=== PATIENT | female | born 1955 | race Caucasian/White ===

== ENCOUNTER → 2018-12-17 | Outpatient (REF) | payer OTHER ==
[2018-12-18 15:39] LABS: ANTI DOUBLE STRAND-DNA AB 1 IU/mL (0-9); ANTINUCLEAR ANTIBODIES DIRECT Positive (Negative); Lyme Disease IgG/IgM Antibodie <0.91 ISR (0.00-0.90); Lyme Disease IgM Ab Quantitati <0.80 index (0.00-0.79); RNP ANTIBODIES 2.1 AI (0.0-0.9); SJOGREN'S ANTI SS-A <0.2 AI (0.0-0.9); SJOGREN'S ANTI SS-B <0.2 AI (0.0-0.9); SMITH ANTIBODIES <0.2 AI (0.0-0.9)
== END ==
LOC: M LAB REF 13:29
PROVIDERS: ATTEND Internal Medicine
DX: M25.50 Pain in unspecified joint (principal)

== ENCOUNTER → 2019-10-10 | Outpatient (CLI) | payer OTHER | LOC: M PT 09:01 | PROVIDERS: ATTEND Orthopaedic Surgery | DX: Z01.818 Encounter for other preprocedural examination (principal); M16.12 Unilateral primary osteoarthritis, left hip ==

== ENCOUNTER → 2019-11-08 | Outpatient (CLI) | payer OTHER ==
[~2019-11-08] MED LIST: ACET-683 PO; CLAR10CA3 PO; CYMB1CAP5 PO; LOSA100T8 PO; MULTTAB12 PO; NAPR-885 PO; NORV5TAB PO; XALA0.007 OU
[2019-11-08 09:04] LABS: HEMATOCRIT 41.1 % (36.0-47.0); HEMOGLOBIN 13.2 g/dl (12.0-15.5); MEAN CORPUSCULAR HEMOGLOBIN 29.6 pg (27.0-33.0); MEAN CORPUSCULAR HGB CONC 32.1 g/dl (32.0-36.5); MEAN CORPUSCULAR VOLUME 92.2 fl (80.0-96.0); PLATELET COUNT, AUTOMATED 332 10^3/uL (150-450); RED BLOOD COUNT 4.46 10^6/uL (4.00-5.40); WHITE BLOOD COUNT 7.8 10^3/uL (4.0-10.0)
[2019-11-08 09:31] LABS: INR 1.35; PROTHROMBIN TIME 16.4 SECONDS (11.8-14.0)
[2019-11-08 09:35] LABS: ALBUMIN 3.9 GM/DL (3.2-5.2); ALT/SGPT 26 U/L (12-78); BILIRUBIN,TOTAL 0.4 MG/DL (0.2-1.0); BLOOD UREA NITROGEN 20 MG/DL (7-18); CALCIUM LEVEL 9.5 MG/DL (8.8-10.2); CARBON DIOXIDE LEVEL 26 MEQ/L (21-32); CHLORIDE LEVEL 104 MEQ/L (98-107); GLOMERULAR FILTRATION RATE > 60.0 (>45); GLUCOSE, FASTING 99 MG/DL (70-100); POTASSIUM SERUM 4.1 MEQ/L (3.5-5.1); SODIUM LEVEL 138 MEQ/L (136-145); TOTAL PROTEIN 7.7 GM/DL (6.4-8.2)
[2019-11-08 09:46] LABS: ERYTHROCYTE SEDIMENTATION RATE 43 mm/hr (0-30)
--- NOTE | 2019-11-10 07:32 | ECGEPIP ---
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
--- NOTE | 2019-11-10 12:46 | REP ---
Clinical: Preoperative assessment. History of hypertension . Comparison: None . Technique: PA and lateral. Findings: The mediastinum and cardiac silhouette are normal. The lung delvalle are clear and without acute consolidation, effusion, or pneumothorax. The skeletal structures are intact and normal. Impression: 1. No acute cardiopulmonary process. Electronically Signed by Carlos Chisholm MD 11/08/2019 09:11 A
== END ==
LOC: M RAD 08:19
PROVIDERS: ATTEND Orthopaedic Surgery
DX: Z01.810 Encounter for preprocedural cardiovascular examination (principal); M17.12 Unilateral primary osteoarthritis, left knee

== ENCOUNTER 2019-11-23 05:50 | Inpatient (IN) | payer OTHER ==
--- NOTE | 2019-11-18 18:26 | HPE ---
DATE OF SCHEDULED ADMISSION: 11/23/2019 CHIEF COMPLAINT: Left hip pain. HISTORY OF PRESENT ILLNESS: Eileen is a pleasant 64-year-old female with progressively worsening left hip pain and stiffness. She has failed to improve with conservative treatment. She has elected for surgery for her continued symptoms. She has pain with weightbearing activities and her activities of daily living. X-rays of her hip are notable for advanced osteoarthritis of the left hip joint. She has consented for a left total hip arthroplasty by Dr. Mike Orellana. Medical optimization was performed by Dr. Dyson. ALLERGIES: SULFA, SIMBRINZA and LATEX. CURRENT MEDICATIONS: - losartan/HCTZ 100/12.5 one in the morning - duloxetine 30 mg one tablet twice a day - amlodipine 5 mg one tablet in the evening - naproxen 500 as needed - latanoprost ophthalmic solution 2.5 mL, 0.005% one drop in each eye at bedtime. She also takes: - Once a day multivitamin - Claritin 10 mg - Tylenol Arthritis. PAST MEDICAL HISTORY: Includes hypertension. PAST SURGICAL HISTORY: Includes cataract removal both eyes SOCIAL HISTORY: She is retired. Does not smoke. Rarely drinks alcohol. FAMILY HISTORY: Noncontributory. REVIEW OF SYSTEMS: This patient denies chest pain, heart palpitations, cough, wheezing, difficulty breathing and shortness of breath. She denies abdominal pain, nausea, vomiting, diarrhea or constipation. She denies recent upper respiratory infection and urinary tract infection symptoms. She does complain of persistent pain in the left hip and pain with weightbearing activities in her left hip. PHYSICAL EXAMINATION: General: She is a well-nourished, well-developed, in no acute distress, alert female patient. She ambulates with a moderate limp, favoring the left lower extremity, and she is using a single-leg cane. Vital signs: She is 67 inches tall, weighs 238.6 pounds with a temperature of 99.2, blood pressure 136/80, pulse 68, and respirations of 17. Neck was supple without adenopathy or jugular venous distension. Lungs were clear to auscultation without rales or wheeze. Heart: Regular rate and rhythm. Abdomen: Bowel sounds were present. Extremities: Examination of the hip revealed intact skin. The patient had decreased range of motion due to pain and stiffness. The limb is neurovascularly intact. LABORATORY DATA: EKG showed normal sinus rhythm at 84 beats per minute. Chest x-ray showed no acute cardiopulmonary disease processes. Pro-time 16.4, INR 1.35, glucose 99, BUN 20, creatinine 0.90, sodium 138, potassium 4.1. CBC was within normal limits with a sedimentation rate of 43. IMPRESSION: Symptomatic osteoarthritis of the left hip joint. PLAN: Consented for a left total hip arthroplasty by Dr. Mike Orellana.
[~2019-11-23] VITALS: Ht 167.6 cm; Wt 107.5 kg
[2019-11-23] VITALS (7 sets, daily range): BP systolic 111–151; BP diastolic 59–93
[2019-11-23] MEDS ORDERED: LIDOCAINE 1% MDV 20ML VIAL SQ PRN (06:00)
[2019-11-23] MEDS ORDERED: LR 1,000 ML IV ONE (06:00)
[2019-11-23] MEDS ORDERED: ceFAZolin SOD 2 GM in IV 1 EA IV ONE (06:00)
[2019-11-23] MEDS ORDERED: TRANEXAMIC ACID 100 MG/ML 10ML VIAL As Ordered ONE (06:51)
[2019-11-23] MEDS ORDERED: ceFAZolin 1GM INJ (J0690 PER 500MG) As Ordered ONE (06:52)
[2019-11-23] MEDS ORDERED: BUPIVACAINE LIPOSOME/PF 1.3% 20ML VIAL (13.3MG/ML)(EXPAREL)(C9290 PER1MG) As Ordered ONE (06:52)
[2019-11-23] MEDS ORDERED: EPINEPHrine INJ 1 MG/ML 1ML VIAL As Ordered ONE (06:52)
[2019-11-23] MEDS ORDERED: MIDAZOLAM INJ 2 MG/2 ML VIAL (J2250) As Ordered ONE ×2 (07:32→07:58)
--- NOTE | 2019-11-23 07:57 | IPN ---
DATE: 11/23/2019 The patient seen and examined. She wished to go ahead with a left total hip arthroplasty. She understands the nature of this the risks of bleeding, infection, damage to nerves, vessels, persistent pain, wear loosening, dislocation, leg length inequality, blood clots, medical problems, among others. She understands that her morbid obesity substantially increases the risks of perioperative and postoperative complications. In addition, she has some small sores around her hip area but nothing even remotely close to where the incision would be. There is one or two in the anterior groin area and one more distally on her thigh and she says this is a chronic condition. She is not familiar with what it is. They look to be very benign and not infected and I think it is safe to proceed as the incision will be several inches from any of these.
[2019-11-23] MEDS ORDERED: fentaNYL 100 MCG/2 ML INJECTION (J3010) As Ordered ONE ×2 (08:13→11:57)
[2019-11-23] MEDS ORDERED: ePHEDrine SULFATE 25 MG/5 ML(5MG/ML) SYRINGE As Ordered ONE (08:14)
[2019-11-23] MEDS: amLODIPine 5 MG TAB PO SCH ×2 (09:00→21:00)
[2019-11-23] MEDS: LORATADINE 10 MG TAB PO SCH (09:00)
[2019-11-23] MEDS ORDERED: PHENYLEPHRINE INJ 10MG/ML VIAL (J2370) As Ordered ONE ×2 (09:16→09:22)
[2019-11-23] MEDS ORDERED: ONDANSETRON 4MG/2ML VIAL (J2405) IV PRN ×2 (10:00→10:30)
[2019-11-23] MEDS ORDERED: oxyCODONE 5MG TAB PO PRN (10:00)
--- NOTE | 2019-11-23 10:19 | REP ---
Left hip: Three views. History: Postop. Findings: AP and two cross-table lateral views of the left hip are presented. The patient is status post left hip arthroplasty. Lateral skin jerry and periarticular soft tissue swelling and emphysema are seen. Alignment is normal on the AP radiograph. The proximal end of the prosthetic components are not seen on cross-table lateral views due to penetration issues. Electronically Signed by David Livingston MD 11/23/2019 10:11 A
[2019-11-23] MEDS ORDERED: MORPHINE 2 MG/ML 1ML VIAL (J2270) IV PRN (10:30)
[2019-11-23] MEDS ORDERED: ACETAMINOPHEN TAB 650MG DOSE (2X325MG) PO PRN (10:30)
[2019-11-23] MEDS: LR 1,000 ML IV SCH (10:30)
[2019-11-23] MEDS ORDERED: MORPHINE 4 MG/ML 1ML VIAL/SYRINGE (J2270) IV PRN (10:30)
[2019-11-23] MEDS: fentaNYL 100 MCG/2 ML INJECTION (J3010) IV PRN ×4 (12:00→12:16)
--- NOTE | 2019-11-23 13:03 | HPEPDOC ---
General Date of Admission Nov 23, 2019 at 05:50 Date of Service: Nov 23, 2019 Chief Complaint The patient is a 64-year-old female admitted with a reason for visit of Osteoarthritis Left Hip. Source: Patient History of Present Illness Consultation report Consultation requested by Orthopedics Consultation for management of medical commorbidities. HPI: 64 year old female with PMH of Osteoarthritis, hypertension, obesity, fibromyalgia admitted to the orthopedic service for elective left total hip replacement for advanced osteoarthritis. She had an uneventful surgery. She complains of some dull aching pain at the left hip at the site of surgery about 2/10 . No radiation. Says the numbness is wearing off and the the pain is coming. She also complains of nausea no vomiting. Home Medications Scheduled Amlodipine Besylate (Norvasc) 5 Mg Tablet, 5 MG PO DAILY, (Reported) Duloxetine Hcl (Cymbalta) 30 Mg Capsule.dr, 30 MG PO BID, (Reported) Latanoprost (Xalatan) 0.005% 2.5ML Drops, 1 DROP OU QHS, (Reported) Loratadine (Claritin) 10 Mg Capsule, 10 MG PO DAILY, (Reported) Losartan/Hydrochlorothiazide (Losartan-Hctz 100-12.5 mg Tab) 1 Each Tablet, 1 TAB PO DAILY, (Reported) Multivitamin (Multiple Vitamins) 1 Each Tablet, 1 TAB PO DAILY, (Reported) Naproxen (Naproxen) 500 Mg Tablet, 500 MG PO BID, (Reported) Scheduled PRN Acetaminophen (Acetaminophen) 500 Mg Tablet, 1,000 MG PO Q6H PRN for ABDOMINAL PAIN, (Reported) Allergies Coded Allergies: latex (Verified Allergy, Intermediate, RASH, 11/07/19) Sulfa (Sulfonamide Antibiotics) (Verified Allergy, Unknown, 11/07/19) brimonidine (Verified Allergy, Unknown, 11/07/19) brinzolamide (Verified Allergy, Unknown, 11/07/19) dorzolamide (Verified Allergy, Unknown, 11/07/19) Past Medical History Medical History Osteoarthritis HYPERTENSION HYPERCHOLESTEROLEMIA GLAUCOMA Possible FIBROMYALGIA being worked up as outpatient. OBESITY Surgical History CATARACTS, BILATERALLY BILATERAL EYE SURGERY, LASER (MULTIPLE TIMES) Family History FATHER: , DIAGNOSED WITH DIABETES, HYPERTENSION, UNSPECIFIED HEART DISEASE MOTHER: , DIABETES MATERNAL GRAND FATHER: MATERNAL GRAND MOTHER: , UNSPECIFIED HEART DISEASE 1 SISTER(S) - HEALTHY. 2 SON(S) . MATERNAL GRANDFATHER- MVA PATERNAL GRANDMOTHER- , UNKNOWN CAUSES PATERNAL GRANDFATHER- CATARACT SURGERY OLDEST SON- HYPERTENSION YOUNGER SON-SERVED IN [employer] FOR 17 YEARS, MULTIPLE MENTAL ISSUES, HEARING ISSUES, MIGRAINES. Social History * Smoker: Denies Alcohol: rarely Drugs: denies A-FIB/CHADSVASC A-FIB History Current/History of A-Fib/PAF?: No Review of Systems Constitutional: Denies: Chills, Fever, Night Sweats Eyes: Denies: Pain, Vision change ENT: Denies: Head Aches, Ear Pain, Dysphagia Skin: Denies: Rash, Lesions, Breakdown Pulmonary: Denies: Dyspnea, Cough Cardiovascular: Denies: Chest Pain, Palpitations, Orthopnea, Paroxysmal Noc. Dyspnea, Lt Headedness Gastrointestinal: Reports: Nausea; Denies: Vomiting, Abdominal Pain, Diarrhea Hematologic: Denies: Bruising, Bleeding Excessively Musculoskeletal: Reports: Back Pain, Shoulder Pain, Joint Pain Neurological: Denies: Weakness, Numbness, Change in speech, Confusion Physical Examination General Exam: Positive: Alert, Cooperative, No Acute Distress Eye Exam: Positive: PERRLA, Conjunctiva & lids normal, EOMI; Negative: Sclera icteric ENT Exam: Positive: Atraumatic, Mucous membr. moist/pink, Pharynx Normal Neck Exam: Positive: Supple; Negative: JVD, thyromegaly Chest Exam: Positive: Clear to auscultation, Normal air movement Heart Exam: Positive: Rate Normal, Regular Rhythm, Normal S1, Normal S2; Negative: Murmurs, Rubs Abdomen Exam: Positive: Normal bowel sounds, Soft; Negative: Tenderness, Hepatospenomegaly Extremity Exam: Positive: Normal pulses; Negative: Clubbing, Cyanosis, Edema Vital Signs Vital Signs Date Time Temp Pulse Resp B/P (MAP) Pulse Ox O2 Delivery O2 Flow Rate FiO2 11/23/19 10:14 76 18 131/71 (91) 98 Room Air 11/23/19 09:30 97.1 Assessment/Plan 64 year old female with PMH of Osteoarthritis, hypertension, obesity, fibromyalgia admitted to the orthopedic service for elective left total hip replacement for advanced osteoarthritis. She had an uneventful surgery. I am seeing the patient for the management of her medical comorbidities. s/p Left total hip arthroplasty pain control and dvt prophylaxis as per orthopedics PT and OT as per ortho Hypertension continue amlodipine will give higher dose in the hospital if needed. hold losartan and HCTZ Fibromyalgia continue Cymbalta Glaucoma continue eye drops. Plan / VTE VTE Prophylaxis Ordered?: Yes POLO BRONSON MD Nov 23, 2019 10:39
[2019-11-23] MEDS: PERCOCET 5MG/325MG TAB PO PRN ×2 (14:52→21:10)
[2019-11-23] MEDS: ceFAZolin SOD 1 GM in D5W MINI-BAG PLUS 50 ML IV SCH (16:18)
[2019-11-23] MEDS: ceFAZolin SOD 2 GM in IV 1 EA IV SCH (16:18)
[2019-11-23] MEDS ORDERED: LATANOPROST 0.005% OPHTH SOLN 2.5 ML OU SCH (21:00)
[2019-11-23] MEDS: DULoxetine 30 MG CAP (CYMBALTA) PO SCH (21:10)
[2019-11-24] MEDS: ceFAZolin SOD 2 GM in IV 1 EA IV SCH (00:38)
[2019-11-24] MEDS: LR 1,000 ML IV SCH (00:48)
[2019-11-24] MEDS: ceFAZolin SOD 1 GM in D5W MINI-BAG PLUS 50 ML IV SCH (01:22)
[2019-11-24 02:00] VITALS: BP 117/70
[2019-11-24 06:00] VITALS: BP 111/60
[2019-11-24] MEDS ORDERED: PERCOCET 5MG/325MG TAB PO PRN ×2 (06:00→06:15)
[2019-11-24 07:39] LABS: BLOOD UREA NITROGEN 12 MG/DL (7-18); CALCIUM LEVEL 8.3 MG/DL (8.8-10.2); CARBON DIOXIDE LEVEL 26 MEQ/L (21-32); CHLORIDE LEVEL 102 MEQ/L (98-107); CREATININE FOR GFR 0.85 MG/DL (0.55-1.30); GLOMERULAR FILTRATION RATE > 60.0 (>45); GLUCOSE, FASTING 129 MG/DL (70-100); POTASSIUM SERUM 3.5 MEQ/L (3.5-5.1); SODIUM LEVEL 135 MEQ/L (136-145)
[2019-11-24] MEDS ORDERED: XARE10TA PO (07:54)
[2019-11-24] MEDS ORDERED: PERC5TAB12 PO (07:54)
--- NOTE | 2019-11-24 08:34 | RO ---
DATE OF PROCEDURE: 11/23/2019 PREOPERATIVE DIAGNOSIS: Left hip osteoarthritis. POSTOPERATIVE DIAGNOSIS: Left hip osteoarthritis. PROCEDURE: Left total hip arthroplasty using a [place] size seven standard +1.5 neck a 54 acetabular component 36 ball. SURGEON: Dr. Orellana DIGITAL DEVELOPER: Clint Stanton ANESTHESIA: Spinal ESTIMATED BLOOD LOSS: 200 COMPLICATIONS: None. PROCEDURE: The patient was taken to the operating room and placed in the right lateral decubitus position on the [place] positioner. Left hip was prepped and draped in usual sterile fashion. Again there were no sore etc that were anywhere near the incision. I did do a preoperative alcohol prep in addition. Once all areas were padded appropriately and the hip was prepped and draped in the usual sterile fashion. I then created longitudinal incision over the lateral aspect the hip once a time-out had been performed. Sharp dissection was carried down through the copious subcutaneous tissue until the fascia was encountered. This was incised longitudinally and I then exposed the abductor the anterior quarter percent of the abductor was divided off the anterior aspect of the hip. I then gradually exposed the proximal femur and dislocated the hip without too much difficulty. The dissection was quite a bit more involved due to her obesity. I then used the canal initiating reamer followed by the canal finding reamer and the lateralizing reamer to open up the canal. I then used a trial broach as a template and made the neck cut at appropriate distance up from the lesser and has a temperature plate and made the neck cut at appropriate distance up from the lesser trochanter. The head was removed. There was severe arthritis. I then directed attention the acetabulum anterior post retractors were placed. Soft tissue was removed from around the acetabulum. There was a significant large anterior osteophyte noted. I then sequentially reamed up to a size 53 which had good bleeding bone and good concentric reaming. I did have to medialized some I controlled hemostasis with the cautery. The actual cup was then inserted after I irrigated and packed in the appropriate amount of anteversion horizontal tilt. Excellent position was noted. I then inserted the acetabular liner 54 x 36, impacted this in place. I made sure it was seated. We directed our attention to the femur where the broaches were used. I was able to broach up to a size seven which is what I had reamed to. Excellent fit and purchase were noted. There was appropriate about 3/4 of a fingerbreadth up from the lesser trochanter. I trialed off this various different neck and offset length and decided on the 1.5 standard which had appropriate soft tissue tension had minimal shuck in full extension. Excellent stability in flexion and extension external rotation. I removed the trial components inserted the actual stem after irrigation. I had irrigated multiple times up this point, impacted the stem down impacted the actual ball on a dry taper made sure was well seated. We reduced the hip put the hip through range of motion again very pleased with this. I had also removed some very large osteophytes anterior aspect the acetabulum prior to placement of stem. I then irrigated copiously placed the TXA and repaired the minimus with #1 Vicryl suture. The abductor with #1 Vicryl suture. Her tissues were a medial quality. I was able to get a good repair. I then repaired the fascia oracio with #1 Vicryl suture in a running Stratafix. I also used a Stratafix suture of the subcutaneous tissue to the depth of the subcutaneous tissue to close the space. Subcu was closed with 2-0 Vicryl. Skin with jerry. A sterile dressing was applied and that she was taken to recovery room in stable condition. No known complications. The plan will be routine postop. The assistant site manager was instrumental in holding retractors and assisting reducing dislocating the hip and assisting in wound closure. This is coded as an unusually difficult procedure due to the patient's morbid obesity which added significant amount difficulty in time to the procedure the dissection was more prolonged the subcutaneous tissue, depth made the procedure much more difficult and the closure was much more difficult. It also more difficult to federal judge tissue balance and reduce and dislocate the hip.
[2019-11-24] MEDS: DULoxetine 30 MG CAP (CYMBALTA) PO SCH (08:38)
[2019-11-24] MEDS: PERCOCET 5MG/325MG TAB PO PRN (08:40)
[2019-11-24] MEDS: LORATADINE 10 MG TAB PO SCH (08:40)
[2019-11-24 08:41] VITALS: BP 111/60
[2019-11-24] MEDS: amLODIPine 5 MG TAB PO SCH (08:41)
[2019-11-24] MEDS ORDERED: MOM 30ML SUSPENSION UDC PO SCH (09:00)
[2019-11-24] MEDS ORDERED: MIRALAX *UNIT DOSE* 17GM PACKET PO SCH (09:00)
[2019-11-24] MEDS ORDERED: RIVAROXABAN 10 MG TAB (XARELTO) PO SCH (18:00)
== END 2019-11-24 12:00 | disposition home or self-care (01) | DRG 470 ==
LOC: M OR 05:50 → M MS5PR 13:37
PROVIDERS: ADMIT Orthopaedic Surgery; ATTEND Orthopaedic Surgery
PROC: 0SRB0JZ Replacement of Left Hip Joint with Synthetic Substitute, Open Approach (ICD-10-PCS; principal; 2019-11-23 07:30)
DX: M16.12 Unilateral primary osteoarthritis, left hip (principal); Z79.899 Other long term (current) drug therapy; Z91.040 Latex allergy status; Z88.2 Allergy status to sulfonamides; Z88.8 Allergy status to other drugs, medicaments and biological substances; E78.00 Pure hypercholesterolemia, unspecified; I10 Essential (primary) hypertension; E66.9 Obesity, unspecified; H40.9 Unspecified glaucoma; M79.7 Fibromyalgia

== ENCOUNTER → 2020-01-24 | Outpatient (REF) | payer OTHER ==
[~2020-01-24] MED LIST changes: +PERC5TAB12 PO; +XARE10TA PO
[2020-01-27 00:06] LABS: ANTI DOUBLE STRAND-DNA AB 1 IU/mL (0-9); ANTINUCLEAR ANTIBODIES DIRECT Positive (Negative); CYCLIC CITRULLINATED PEPTIDE 8 units (0-19); RNP ANTIBODIES 2.6 AI (0.0-0.9); SJOGREN'S ANTI SS-A <0.2 AI (0.0-0.9); SJOGREN'S ANTI SS-B <0.2 AI (0.0-0.9); SMITH ANTIBODIES <0.2 AI (0.0-0.9)
== END ==
LOC: M LAB REF 12:29
PROVIDERS: ATTEND Internal Medicine
DX: M79.7 Fibromyalgia (principal); G89.29 Other chronic pain

== ENCOUNTER → 2021-04-12 | Outpatient (CLI) | payer MEDICARE, OTHER ==
--- NOTE | 2021-04-12 10:39 | REPMRS ---
Patient History The patient states she has not had a clinical breast exam in over a year. Baseline mammogram Patient is postmenopausal. No known family history of cancer. Patient states no breast complaints. Patient has signed the [facility] History sheet. Digital Woman Screen Mammo: April 12, 2021 - Exam #: [id number] Bilateral CC and MLO view(s) were taken. Technologist: Eileen Pandey, Technologist FINDINGS: There are scattered fibroglandular densities. Screening. Digital screening (2D) mammography was performed bilaterally. Additionally, breast tomosynthesis (3D) mammography was perfomed bilaterally in the CC and MLO projections. Today's examination is the initial screening examination. By history, the patient has no complaints of a palpable breast abnormality or other significant breast complaints. The breasts are symmetric in size and shape. There are no masses. There is no internal architectural distortion. There are no suspicious microcalcific clusters. Skin thickening or nipple retraction is not present. IMPRESSION: BI-RADS Category 2- Benign Findings. There is no evidence of malignant alteration of the breasts. Followup examination recommended in one year. The Volpara volumetric breast density category is B, there are scattered areas of fibroglandular density. This mammogram was read with the assistance of MyFeelBack,an FDA approved computer aided detection system for mammography. The lifetime Tyrer-Cuzick score is 6.1 % Negative x-ray reports should not delay surgical consultation if a dominant or clinically suspicious mass is present. Not all breast cancers can be identified by mammography. Therefore, we recommend that you continue to perform regular breast self-examination and physical examination and then promptly contact your physician of any concerns or changes. Adenosis and dense breasts may obscure an underlying neoplasm. Assessment: BI-RADS/ACR category 2 mammogram. Benign Findings. Recommendation Routine screening mammogram of both breasts in 1 year. Electronically Signed By: Wilmer Delgadillo DO 04/12/21 1038
== END ==
LOC: M WHC 09:15
PROVIDERS: ATTEND Internal Medicine
DX: Z12.31 Encounter for screening mammogram for malignant neoplasm of breast (principal)

== ENCOUNTER → 2022-04-30 | Outpatient (CLI) | payer MEDICARE, OTHER | LOC: M WHC 10:26 | PROVIDERS: ATTEND Internal Medicine | DX: Z12.31 Encounter for screening mammogram for malignant neoplasm of breast (principal) ==

== ENCOUNTER → 2022-10-13 | Outpatient (CLI) | payer MEDICARE, OTHER | LOC: M WHC 08:18 | PROVIDERS: ATTEND Internal Medicine | DX: M85.80 Other specified disorders of bone density and structure, unspecified site (principal); Z78.0 Asymptomatic menopausal state ==

== ENCOUNTER → 2022-12-01 | Outpatient (REF) | payer MEDICARE, OTHER | LOC: M LAB REF 16:27 | PROVIDERS: ATTEND Internal Medicine | DX: R31.9 Hematuria, unspecified (principal) ==

== ENCOUNTER → 2022-12-19 | Outpatient (CLI) | payer MEDICARE, OTHER | LOC: M WHC 11:24 | PROVIDERS: ATTEND Internal Medicine | DX: N95.0 Postmenopausal bleeding (principal) ==

== ENCOUNTER → 2023-01-01 | Outpatient (REF) | payer MEDICARE, OTHER | LOC: M PLALAB 10:16 | PROVIDERS: ATTEND Nurse Practitioner Family | DX: N95.0 Postmenopausal bleeding (principal); N95.1 Menopausal and female climacteric states ==

== ENCOUNTER → 2023-05-14 | Outpatient (CLI) | payer MEDICARE, OTHER | LOC: M WHC 08:45 | PROVIDERS: ATTEND Internal Medicine | DX: Z12.31 Encounter for screening mammogram for malignant neoplasm of breast (principal) ==

== ENCOUNTER → 2024-06-10 | Outpatient (CLI) | payer MEDICARE, OTHER | LOC: M WHC 09:57 | PROVIDERS: ATTEND Internal Medicine | DX: Z12.31 Encounter for screening mammogram for malignant neoplasm of breast (principal); R92.313 Mammographic fatty tissue density, bilateral breasts ==

== ENCOUNTER → 2025-06-13 | Outpatient (CLI) | payer MEDICARE, OTHER | LOC: M WHC 08:02 | PROVIDERS: ATTEND Internal Medicine | DX: Z12.31 Encounter for screening mammogram for malignant neoplasm of breast (principal); R92.313 Mammographic fatty tissue density, bilateral breasts ==

== ENCOUNTER → 2025-11-06 | Outpatient (CLI) | payer MEDICARE, OTHER | LOC: M WHC 09:56 | PROVIDERS: ATTEND Internal Medicine | DX: M81.0 Age-related osteoporosis without current pathological fracture (principal) ==